=== PATIENT | male | born 1960 ===

== ENCOUNTER 2016-10-30 20:46 | Inpatient (IN) | payer OTHER ==
--- NOTE | 2016-10-30 22:06 | C.PDOC ---
History Of Present Illness <Kaden Giles - Last Filed: 10/31/16 03:04> <Timothy Vazquez - Last Filed: 11/02/16 18:08> 56 year old patient presents to the ED complaining of constant epigastric pain since this morning. Patient states he had the same pain about 5 days ago. Patient was seen by his PMD who instructed him to take Omeprazole. The pain went away, but came back today. Patient denies any history of this, alcohol use , substance use, fever, chills, nausea, vomiting, diarrhea, chest pain, shortness of breath, or back pain. (Timothy Vazquez) <Kaden Giles - Last Filed: 10/31/16 03:04> History Per: Patient History/Exam Limitations: no limitations Onset/Duration Of Symptoms: Hrs (this morning) Current Symptoms Are (Timing): Still Present Context: Other Severity: Mild Pain Scale Rating Of: 3 Location Of Pain/Discomfort: Epigastric Radiation Of Pain To:: None Quality Of Discomfort: "Pain", Other (constant) Exacerbating Factors: None Alleviating Factors: None Last Bowel Movement: Today Recent travel outside of the [place]: No <Timothy Vazquez - Last Filed: 11/02/16 18:08> Time Seen by Provider: 10/30/16 22:05 Chief Complaint (Nursing): Abdominal Pain Past Medical History Reviewed: Historical Data, Nursing Documentation, Vital Signs Family History: States: Unknown Family Hx - Social History Hx Alcohol Use: No Hx Substance Use: No - Immunization History Hx Tetanus Toxoid Vaccination: No Hx Influenza Vaccination: No Hx Pneumococcal Vaccination: No <Timothy Vazquez - Last Filed: 11/02/16 18:08> Vital Signs: Last Vital Signs Temp 98.3 F 11/01/16 15:13 Pulse 65 11/01/16 15:13 Resp 20 11/01/16 15:13 BP 131/81 11/01/16 15:13 Pulse Ox 95 11/01/16 15:13 Review Of Systems Except As Marked, All Systems Reviewed And Found Negative. Constitutional: Negative for: Fever, Chills Cardiovascular: Negative for: Chest Pain Respiratory: Negative for: Shortness of Breath Gastrointestinal: Positive for: Abdominal Pain. Negative for: Nausea, Vomiting , Diarrhea Musculoskeletal: Negative for: Back Pain <Timothy Vazquez P - Last Filed: 11/02/16 18:08> Physical Exam - Physical Exam Appears: Non-toxic, No Acute Distress Skin: Warm, Dry Head: Atraumatic, Normacephalic Eye(s): bilateral: Normal Inspection, PERRL, EOMI Neck: Normal ROM, Supple Chest: Symmetrical Cardiovascular: Rhythm Regular Respiratory: Normal Breath Sounds, No Rales, No Rhonchi, No Wheezing Gastrointestinal/Abdominal: Soft, Tenderness (epigastric), No Guarding, No Rebound Back: Normal Inspection, No CVA Tenderness Extremity: Normal ROM Neurological/Psych: Oriented x3, Normal Speech, Normal Cognition Gait: Steady <Timothy Vazquez P - Last Filed: 11/02/16 18:08> ED Course And Treatment - Laboratory Results Result Diagrams: 10/30/16 22:31 10/30/16 22:31 <Kaden Giles - Last Filed: 10/31/16 03:04> - Laboratory Results Result Diagrams: 11/01/16 06:41 11/01/16 06:41 O2 Sat by Pulse Oximetry: 97 (RA) Pulse Ox Interpretation: Normal <Timothy Vazquez P - Last Filed: 11/02/16 18:08> Medical Decision Making <Kaden Giles - Last Filed: 10/31/16 03:04> <Timothy Vazquez P - Last Filed: 11/02/16 18:08> Medical Decision Making: pt signed out to me pending ct. ct shows early cholecytitis - dr haas accepts requests dr oh consult. instructor adjunct surgical technician giorgi troncoso pageprem, callback pending (Kaden Giles) Plan: -Labs -Lidocaine 2%, Maalox EKG: Sinus Bradycardia 50 bpm incomplete RBBB No STEMI (Timothy Vazquez) Disposition - Disposition Disposition Time: 02:23 <Kaden Giles - Last Filed: 10/31/16 03:04> <Timothy Vazquez P - Last Filed: 11/02/16 18:08> - Disposition Disposition: HOSPITALIZED Condition: STABLE - Clinical Impression Clinical Impression: Cholecystitis <Kaden Giles - Last Filed: 10/31/16 03:04> - Scribe Statement The provider has reviewed the documentation as recorded by the Scribe <Timothy Vazquez - Last Filed: 11/02/16 18:08> - Scribe Statement Gosia Vazquez (Timothy Vazquez) Provider Attestation: All medical record entries made by the Scribe were at my direction and personally dictated by me. I have reviewed the chart and agree that the record accurately reflects my personal performance of the history, physical exam, medical decision making, and the department course for this patient. I have also personally directed, reviewed, and agree with the discharge instructions and disposition. (Timothy Vazquez) Decision To Admit - Pt Status Changed To: Hospital Disposition Of: Inpatient - Admit Certification Admit to Inpatient:: After my assessment, the patient will require hospitalization for at least two midnights. This is because of the severity of symptoms shown, intensity of services needed, and/or the medical risk in this patient being treated as an outpatient. - InPatient: Physician Admission Certification:: pt with cholecytitis - . Bed Request Type: Regular Admitting Physician: Daniel Haas <Kaden Giles - Last Filed: 10/31/16 03:04> <Timothy Vazquez - Last Filed: 11/02/16 18:08> - . Patient Diagnosis: Cholecystitis Physician Patient Turnover Patient Signed Over To: Kaden Giles Handoff Comments: pending ct <Timothy Vazquez - Last Filed: 11/02/16 18:08>
[2016-10-30] MEDS ORDERED: Lidocaine 2% Viscous 100 ml PO STA (22:11)
[2016-10-30] MEDS ORDERED: Aluminum Hydroxide/Magnesium Hydroxide Susp (30 mL) PO STA (22:11)
[2016-10-30] MEDS ORDERED: Aluminum Hydroxide/Magnesium Hydroxide Susp (30 mL) ONE (22:13)
[2016-10-30 22:47] LABS: RBC URINE 2 /hpf (0-3); URINE BILIRUBIN NEGATIVE (NEGATIVE); URINE BLOOD NEGATIVE (NEGATIVE); URINE COLOR Straw (YELLOW); URINE GLUCOSE (UA) NORMAL (Normal); URINE KETONE NEGATIVE (NEGATIVE); URINE LEUKOCYTE ESTERASE NEG Leu/uL (Negative); URINE PROTEIN NEGATIVE (NEGATIVE); URINE UROBILINOGEN NORMAL mg/dL (0.2-1.0); WBC URINE 4 /hpf (0-5)
[2016-10-30 22:50] LABS: CHLORIDE 94 mmol/L (98-107); POTASSIUM 4.1 mmol/L (3.6-5.2); SODIUM 139 mmol/L (132-148)
[2016-10-30 22:52] LABS: AST/SGOT 35 U/L (17-59); BILIRUBIN,TOTAL 0.5 mg/dL (0.2-1.3); CARBON DIOXIDE 28 mmol/L (22-30); GFR AFRICAN-AMERICAN > 60
[2016-10-30 22:53] LABS: ALB/GLOB RATIO 1.3 (1.0-2.1); ALKALINE PHOSPHATASE 113 U/L (38-126); ALT/SGPT 35 U/L (21-72); BLOOD UREA NITROGEN 12 mg/dL (9-20); CALCIUM 9.4 mg/dl (8.6-10.4); GLUCOSE,RANDOM 115 mg/dL (75-110); TOTAL PROTEIN 8.7 g/dL (6.3-8.3)
[2016-10-31] MEDS ORDERED: Morphine 4 MG/ML VIAL ONE (00:05)
[2016-10-31 00:11] LABS: BASO % 0.4 % (0.0-2.0); EOS % 0.2 % (0.0-4.0); HEMATOCRIT 48.5 % (35.0-51.0); LYMPH # 0.9 K/uL (1.0-4.3); MEAN CELL VOLUME 89.2 fL (80.0-94.0); MEAN CORPUSCULAR HEMOGLOBIN 29.1 pg (27.0-31.0); MEAN CORPUSCULAR HGB CONC 32.6 g/dL (33.0-37.0); MEAN PLATELET VOLUME 9.6 fL (7.2-11.7); MONO # 0.3 K/uL (0.0-0.8); MONO % 3.9 % (0.0-10.0); RED CELL DISTRIBUTION WIDTH 13.4 % (11.5-14.5); WHITE BLOOD COUNT 8.6 K/uL (4.8-10.8)
[2016-10-31] MEDS ORDERED: Iohexol 350mg/ml 100 ML ONE (00:16)
[2016-10-31] MEDS ORDERED: Piperacillin/Tazobact 3.375 gm 100 ML IVPB STA (01:42)
--- NOTE | 2016-10-31 05:50 | CP.PCM.CON ---
History of Present Illness - History of Present Illness History of Present Illness: GENERAL SURGERY CONSULT NOTE FOR DR. SUGGS 56yo M with no significant PMHx presents to the ED with epigastric pain. He states the pain began yesterday afternoon after he drank some coke. The pain is sharp, constant, located in the epigastric and RUQ area. He denies nausea, vomiting, diarrhea, CP, SOB, fever, chills. He had similar symptoms 5 days before and was seen by his PMD who told him to take omeprazole. The pain went away but came back yesterday. He has also had similar symptoms previously a few times but the pain this time is more intense which prompted him to come to the hospital. PMHx: none Surgeries: bilateral knee arthroscopies, Right shoulder tendon repair Allergies: none Social history: denies tobacco, etoh, illicit drug use Review of Systems - Review of Systems All systems: reviewed and no additional remarkable complaints except (as per HPI ) Past Patient History - Past Social History Smoking Status: Never Smoked - MUSCULOSKELETAL/RHEUMATOLOGICAL Hx Falls: No - GASTROINTESTINAL Other/Comment: epigastric pain which started yesterday. - PSYCHIATRIC Hx Substance Use: No - SURGICAL HISTORY Hx Surgeries: No Meds Allergies/Adverse Reactions: Allergies Allergy/AdvReac Type Severity Reaction Status Date / Time No Known Allergies Allergy Unverified 10/30/16 21:55 - Medications Medications: Current Medications Piperacillin Sod/Tazobactam (Sod 3.375 gm/ Sodium Chloride) 100 mls @ 200 mls/ hr IVPB Q6H [facility] Sodium Chloride (Sodium Chloride 0.9%) 1,000 mls @ 125 mls/hr IV .Q8H [facility] Morphine Sulfate (Morphine) 2 mg IVP Q4 PRN PRN Reason: Pain, moderate (4-7) Ondansetron HCl (Zofran Inj) 4 mg IVP Q4 PRN PRN Reason: Nausea/Vomiting Physical Exam - Constitutional Appears: Non-toxic, No Acute Distress, Other (uncomfortable) - Head Exam Head Exam: ATRAUMATIC, NORMAL INSPECTION - Eye Exam Eye Exam: EOMI, Normal appearance - Respiratory Exam Respiratory Exam: NORMAL BREATHING PATTERN. absent: Respiratory Distress - Cardiovascular Exam Cardiovascular Exam: +S1, +S2 - GI/Abdominal Exam GI & Abdominal Exam: Soft, Tenderness (tender epigastric and RUQ). absent: Distended, Firm, Guarding, Rebound, Rigid - Neurological Exam Neurological exam: Alert, CN II-XII Intact, Oriented x3 - Psychiatric Exam Psychiatric exam: Normal Affect, Normal Mood - Skin Skin Exam: Dry, Normal Color, Warm Results - Vital Signs Recent Vital Signs: Last Vital Signs Temp 97.7 F 10/31/16 03:11 Pulse 60 10/31/16 03:11 Resp 20 10/31/16 03:11 BP 119/71 10/31/16 03:11 Pulse Ox 98 10/31/16 03:42 - Labs Result Diagrams: 10/30/16 22:31 10/30/16 22:31 Assessment & Plan - Assessment and Plan (Free Text) Assessment: 56yo M with no significant PMHx presents with epigastric pain and is found to have cholelithiasis and possible early cholecystitis - Afebrile, VSS - EKG: sinus earle - CT: couple gallstones, equivocal stranding around GB, possible early cholecystitis, inguinal hernias, diverticulosis, small hiatal hernia - Ordered abdominal US - No leukocytosis, bilirubin, LFTs, Lipase WNL - NPO - IV fluids - Zosyn - Morphine and Zofran PRN - Discussed plan with Dr. Carol Santamaria PGY-2
[2016-10-31] MEDS: Sodium Chloride 0.9% 1,000 ML IV SCH ×3 (06:20→22:02)
--- NOTE | 2016-10-31 10:09 | CT ---
PROCEDURE: CT Abdomen and Pelvis dated 10/31/2016. HISTORY: abdominal pain COMPARISON: None. TECHNIQUE: Contiguous axial images of the abdomen and pelvis pelvis performed in standard fashion following intravenous injection of approximately 100 cc of Omnipaque 350 contrast material. Coronal and Sagittal reformats generated. Radiation dose: Total exam DLP = 631.19 mGy-cm. FINDINGS: LOWER THORAX: Some minimal linear atelectasis and or scarring changes. Lung bases are otherwise clear with no basilar pneumothorax or effusion. Heart is enlarged. No significant pericardial effusion. Small hiatal hernia with slight wall thickening of the distal esophagus that could be due to protrusion of gastric mucosa. Possibility of esophagitis excluded. LIVER: Un the liver exhibits normal size measuring approximately 14.4 cm in CC dimension. Suspect minor fatty hepatic infiltration. There is small approximately 7 mm rounded low-attenuation focus left lobe liver that most likely represents a hepatic cyst. Followup at interval could be performed to assess stability. Portal and splenic veins are opacified. GALLBLADDER AND BILE DUCTS: Intraluminal gallbladder calculi identified. There may also be some layering sludge. PANCREAS: The pancreas is slightly atrophic and fatty replaced. No pancreatic mass collection or calcification. . SPLEEN: Spleen exhibits normal size and attenuation pattern without mass collection or calcification. ADRENALS: There are no adrenal lesions. KIDNEYS AND URETERS: Kidneys exhibit symmetric nephrograms. No evidence of nephrolithiasis or hydronephrosis. BLADDER: Urinary bladder is incompletely distended which presumably in part accounts for thick-walled appearance. Muscular hypertrophy may contribute however the possibility of a cystitis not excluded. REPRODUCTIVE: Prostate gland measures approximately 3.7 cm in transverse dimension. APPENDIX: Normal-appearing appendix. . BOWEL: Evaluation of the bowel is limited due to the lack of oral contrast material. Stomach is incompletely distended which presumably accounts for slight thick-walled appearance. Visualized loops of small bowel exhibit normal contour and caliber. No evidence acute mechanical small bowel obstruction. Moderate amount of stool seen within cecum and ascending colon suggesting mild fecal retention. Few scattered colonic diverticula are present however no radiographic evidence malignancy. PERITONEUM: Unremarkable. No fluid collection. No free air. Small fat containing umbilical hernia. LYMPH NODES: No significant bulky adenopathy. VASCULATURE: Unremarkable. No aortic aneurysm. BONES: Minor multilevel degenerative spondylosis of the lower thoracic and lumbar spine. OTHER FINDINGS: None. IMPRESSION: Cholelithiasis with questionable intraluminal gallbladder sludge. Probable small hepatic cyst. Suspect minimal fatty hepatic infiltration. Thick-walled urinary bladder likely due to underdistention and muscular hypertrophy however the possibility of a cystitis not excluded. Small fat containing umbilical hernia.
--- NOTE | 2016-10-31 10:33 | CP.PCM.HP ---
History of Present Illness - History of Present Illness History of Present Illness: Patient is a 56 year old male who was admitted from the ED due to severe abdominal pain. Patient states that this pain has been progressively worsening for the last 5 days in the epigastric region. pain waxed and waned, and returned 1 day prior to admission after drinking soda. Patient describes the pain as sharp, constant, and in the RUQ of the abdomen. denies fever, chills, nausea, vomiting, diarrhea, SOB, CP PMHx: denies Social Hx: denies alcohol or drug abuse Family Hx: denies Surgical Hx: bilateral knee arthroscopy, right shoulder tendon repair Present on Admission - Present on Admission Any Indicators Present on Admission: No Review of Systems - Constitutional Constitutional: absent: Chills, Fever - EENT Eyes: absent: Change in Vision - Cardiovascular Cardiovascular: As Per HPI. absent: Chest Pain, Chest Pain at Rest, Chest Pain with Activity, Dyspnea, Dyspnea on Exertion, Edema, Irregular Heart Rhythm, Pedal Edema - Respiratory Respiratory: As Per HPI. absent: Cough, Dyspnea, Hemoptysis, Dyspnea on Exertion, Wheezing, Chest Congestion, Excessive Mucous Production - Gastrointestinal Gastrointestinal: Abdominal Pain (Epigastric Pain in RUQ). absent: Diarrhea, Nausea, Vomiting - Musculoskeletal Musculoskeletal: absent: Back Pain, Joint Swelling - Neurological Neurological: absent: Abnormal Speech, Behavioral Changes Past Patient History - Past Social History Smoking Status: Never Smoked - MUSCULOSKELETAL/RHEUMATOLOGICAL Hx Falls: No - GASTROINTESTINAL Other/Comment: epigastric pain which started yesterday. - PSYCHIATRIC Hx Substance Use: No - SURGICAL HISTORY Hx Surgeries: No Meds Allergies/Adverse Reactions: Allergies Allergy/AdvReac Type Severity Reaction Status Date / Time No Known Allergies Allergy Unverified 10/30/16 21:55 Physical Exam - Constitutional Appears: Non-toxic, No Acute Distress, Other Additional comments: Appears in pain and discomfort, but is able to sit and converse - Head Exam Head Exam: NORMAL INSPECTION - Eye Exam Eye Exam: Normal appearance - ENT Exam ENT Exam: Mucous Membranes Moist - Neck Exam Neck exam: Positive for: Normal Inspection - Respiratory Exam Respiratory Exam: Clear to Auscultation Bilateral, NORMAL BREATHING PATTERN - Cardiovascular Exam Cardiovascular Exam: REGULAR RHYTHM, +S1, +S2 - GI/Abdominal Exam GI & Abdominal Exam: Soft, Tenderness (... in the epigastric RUQ abdominal region). absent: Distended, Firm, Guarding, Rebound, Rigid - Extremities Exam Extremities exam: Positive for: normal inspection - Neurological Exam Neurological exam: Alert, Altered, CN II-XII Intact, Oriented x3 - Psychiatric Exam Psychiatric exam: Normal Affect, Normal Mood - Skin Skin Exam: Dry, Intact, Normal Color, Warm Results - Vital Signs Recent Vital Signs: Last Vital Signs Temp 98.6 F 10/31/16 07:00 Pulse 58 L 10/31/16 07:00 Resp 18 10/31/16 07:00 BP 129/70 10/31/16 07:00 Pulse Ox 96 10/31/16 07:00 - Labs Result Diagrams: 10/30/16 22:31 10/30/16 22:31 Assessment & Plan (1) Cholecystitis Assessment and Plan: CT done on 10/30 showed cholelithiasis with questionable intraluminal gallbladder sludge. See report for full details EKG 10/30 showed incomplete RBBB. Continue to monitor Pain control with morphine infection prophylaxis with Zosyn Dietary consult surgical consults/cholecystectomy Status: Acute
[2016-10-31] MEDS: Piperacillin/Tazobact 3.375 GM in Sodium Chloride 100 ML IVPB SCH ×3 (10:45→19:51)
--- NOTE | 2016-10-31 12:08 | US ---
Abdominal ultrasound dated 10/31/2016. History: Questionable cholecystitis. Sonographic evaluation of abdomen performed and compared with prior study 09/20/2016. Correlation made with CT scan of the abdomen and pelvis obtained earlier same day. . Findings: The liver exhibits normal size measuring 13.3 cm CC dimension. Liver demonstrates smooth contour increased echotexture consistent with fatty infiltration however other infiltrative hepatocellular disease process not excluded. . No obvious hepatic mass or collection. No evidence of abdominal ascites. . Gallbladder is physiologically distended. Intraluminal gallbladder calculi present. Mild wall edema measuring 6.1 mm. No sonographic Richards sign. Early acute cholecystitis not excluded. . Evaluation of pancreas is somewhat limited. Pancreatic mid body and tail appear poorly visualized on this exam. . . Spleen is unremarkable. . Kidneys exhibit symmetric size. No evidence of nephrolithiasis or hydronephrosis. . Impression: Cholelithiasis. Mild wall thickening ; rule out mild early cholecystitis. Fatty hepatic infiltration. Evaluation of the pancreas limited.
[2016-10-31] MEDS ORDERED: Lactated Ringer's 1,000 ML IV ONE (14:15)
[2016-10-31] MEDS ORDERED: Propofol 10 mg/ml Inj (20 ML) ONE (14:22)
[2016-10-31] MEDS ORDERED: Midazolam 2 MG/2 ML VIAL ONE (14:22)
[2016-10-31] MEDS ORDERED: Iohexol 240 (50 ml) ONE (14:33)
[2016-10-31] MEDS ORDERED: Neostigmine Methylsulfate 3mg/3ml Syringe IV ONE (15:20)
--- NOTE | 2016-10-31 15:45 | PCM.SURG1 ---
Surgeon's Initial Post Op Note - Surgeon's Notes Surgeon: Dr. Medina Digital Service Engineer: Dr. Moyer Type of Anesthesia: General Endo Pre-Operative Diagnosis: acute cholecystitis Operative Findings: inflammed gallbladder Post-Operative Diagnosis: same Operation Performed: laparoscopic cholecystectomy w/ IOC and primary repair of incarcerated umbilical hernia Specimen/Specimens Removed: gallbladder, bile fluid c&s Estimated Blood Loss: EBL {In ML}: 20 Blood Products Given: N/A Drains Used: No Drains Post-Op Condition: Good Date of Surgery/Procedure: 10/31/16 Time of Surgery/Procedure: 15:45
[2016-10-31] MEDS ORDERED: Oxycodone/Acetaminophen 5/325 mg Tab PO PRN ×2 (15:46)
[2016-10-31] MEDS: HYDROmorphone 0.5 mg/0.5 ml ISec IVP PRN ×2 (16:18→16:36)
[2016-10-31] MEDS ORDERED: Sodium Chloride 0.9% 1,000 ML IV ONE (17:00)
--- NOTE | 2016-10-31 18:51 | OP ---
PROCEDURE DATE: 10/31/2016 PREOPERATIVE DIAGNOSIS: Acute cholecystitis. POSTOPERATIVE DIAGNOSIS: Acute cholecystitis. PROCEDURE CARRIED OUT: Laparoscopic cholecystectomy with C-arm cholangiogram. SURGEON: Jeferson Medina Jr., MD PMO PROJECT MANAGER: Dr. Moyer. ANESTHESIOLOGIST: ANESTHESIA: General anesthesia. INDICATIONS: A 56-year-old man, previously healthy, admitted with severe abdominal pain, found to urena ve an inflamed gallbladder. Liver function tests were basically normal. OPERATIVE FINDINGS: 1. A cholangiogram carried out through the cystic duct showed free flow into the duodenum and visual ization of hepatic radicles. 2. A view of safety was obtained. 3. The cystic duct and cystic artery were clipped. 4. The gallbladder was acutely inflamed and edematous. DESCRIPTION OF PROCEDURE: The patient was given general anesthesia, intravenous antibiotics, Venodyn e boots were applied. A Guilherme trocar was inserted by cutdown technique. There was a chronically in carcerated infraumbilical hernia which had to be reduced. This was then closed separately at the end of the procedure. We then decompressed the gallbladder and there was sima pus in the gallbladder. This was cultured. The cystic duct and cystic artery, as I mentioned, in the view of safety was the n obtained. The gallbladder then removed after clipping this, obtaining hemostasis in the liver bed, removing the gallbladder in the bag. Thorough search was made for hemostasis, injuries to the liver , injury to the bowel, none were visible. We then irrigated out again and closed the abdomen with ru nning sutures of Novafil and PDS. Subcuticular closure on the skin. The umbilical port was closed. Special closure had to be carried out because of the chronically incarcerated hernia which was reduc ed and then repaired at the end of the procedure. Blood loss of the procedure was less than 25 mL. OPERATION CARRIED OUT: Laparoscopic cholecystectomy with cholangiogram and repair of chronically inc arcerated umbilical hernia, no mesh. Jeferson Medina Jr., MD cc:Daniel Mendoza MD 55 TT: 10/31/2016 18:49:53 jero
--- NOTE | 2016-10-31 20:21 | CARD ---
APPROVED REPORT EKG Measurement Heart [id number] <Conclusion> Sinus bradycardia with occasional premature ventricular complexes Incomplete right bundle branch block Borderline ECG
[2016-11-01] MEDS: Piperacillin/Tazobact 3.375 GM in Sodium Chloride 100 ML IVPB SCH ×3 (01:55→13:45)
[2016-11-01] MEDS: Sodium Chloride 0.9% 1,000 ML IV SCH (06:05)
[2016-11-01 07:03] LABS: BASO % 0.2 % (0.0-2.0); EOS # 0.1 K/uL (0.0-0.7); EOS % 1.1 % (0.0-4.0); HEMATOCRIT 40.7 % (35.0-51.0); LYMPH # 1.9 K/uL (1.0-4.3); LYMPH % 26.2 % (20.0-40.0); MEAN CELL VOLUME 88.6 fL (80.0-94.0); MEAN CORPUSCULAR HEMOGLOBIN 29.3 pg (27.0-31.0); MEAN CORPUSCULAR HGB CONC 33.1 g/dL (33.0-37.0); MEAN PLATELET VOLUME 9.5 fL (7.2-11.7); MONO # 0.8 K/uL (0.0-0.8); MONO % 10.5 % (0.0-10.0); NRBC % 0.1 % (0.0-2.0); RED CELL DISTRIBUTION WIDTH 13.5 % (11.5-14.5); WHITE BLOOD COUNT 7.4 K/uL (4.8-10.8)
[2016-11-01 07:06] LABS: CHLORIDE 100 mmol/L (98-107); SODIUM 137 mmol/L (132-148)
[2016-11-01 07:07] LABS: POTASSIUM 3.8 mmol/L (3.6-5.2)
[2016-11-01 07:08] LABS: GFR AFRICAN-AMERICAN > 60
[2016-11-01 07:09] LABS: ALB/GLOB RATIO 1.3 (1.0-2.1); ALKALINE PHOSPHATASE 77 U/L (38-126); ALT/SGPT 58 U/L (21-72); AST/SGOT 54 U/L (17-59); BLOOD UREA NITROGEN 20 mg/dL (9-20); CARBON DIOXIDE 27 mmol/L (22-30); GLUCOSE,RANDOM 89 mg/dL (75-110)
[2016-11-01 07:10] LABS: CALCIUM 7.6 mg/dl (8.6-10.4)
[2016-11-01] MEDS ORDERED: Enoxaparin 40 mg Syringe SC SCH (10:00)
--- NOTE | 2016-11-01 10:27 | CP.PCM.PN ---
Subjective - Date & Time of Evaluation Date of Evaluation: 11/01/16 Time of Evaluation: 11:39 - Subjective Subjective: Surgery: Dr. Medina Patient reports minimal pain at surgical site. He is tolerating diet. He denies f/c/n/v. Objective - Vital Signs/Intake and Output Vital Signs (last 24 hours): Temp Pulse Resp BP Pulse Ox 99.2 F 72 18 123/66 91 L 11/01/16 08:24 11/01/16 08:24 11/01/16 08:24 11/01/16 08:24 11/01/16 08:24 Intake and Output: 11/01/16 11/01/16 06:59 18:59 Intake Total 940 Balance 940 - Medications Medications: Current Medications Enoxaparin Sodium (Lovenox) 40 mg SC DAILY [facility] Last Admin: 11/01/16 09:38 Dose: 40 mg Piperacillin Sod/Tazobactam (Sod 3.375 gm/ Sodium Chloride) 100 mls @ 200 mls/ hr IVPB Q6H [facility] Last Admin: 11/01/16 09:37 Dose: 200 mls/hr Sodium Chloride (Sodium Chloride 0.9%) 1,000 mls @ 125 mls/hr IV .Q8H [facility] Last Admin: 11/01/16 06:05 Dose: Not Given Morphine Sulfate (Morphine) 2 mg IVP Q4 PRN PRN Reason: Pain, severe (8-10) Ondansetron HCl (Zofran Inj) 4 mg IVP Q4 PRN PRN Reason: Nausea/Vomiting Oxycodone/Acetaminophen (Percocet 5/325 Mg Tab) 1 tab PO Q4H PRN PRN Reason: Pain, moderate (4-7) Stop: 11/03/16 15:47 Oxycodone/Acetaminophen (Percocet 5/325 Mg Tab) 2 tab PO Q4H PRN PRN Reason: Pain, severe (8-10) Stop: 11/03/16 15:47 - Labs Labs: 11/01/16 06:41 11/01/16 06:41 - Constitutional Appears: Non-toxic, No Acute Distress - Head Exam Head Exam: ATRAUMATIC, NORMOCEPHALIC - Eye Exam Eye Exam: EOMI, Normal appearance - ENT Exam ENT Exam: Mucous Membranes Moist - Respiratory Exam Respiratory Exam: NORMAL BREATHING PATTERN. absent: Respiratory Distress - Cardiovascular Exam Cardiovascular Exam: REGULAR RHYTHM. absent: Tachycardia - GI/Abdominal Exam GI & Abdominal Exam: Soft. absent: Distended, Tenderness Additional comments: dressing CDI - Extremities Exam Extremities Exam: Normal Inspection. absent: Calf Tenderness - Neurological Exam Neurological Exam: Alert, Awake, Oriented x3 Assessment and Plan - Assessment and Plan (Free Text) Assessment: 56 y/o male s/p lap harris POD1 Plan: -cleared from surgical standpoint -f/u w/ Dr. Medina in office in 2 weeks -cont low fat diet -can removed dressing tomorrow -can shower, do not bathe or soak incisions -patient concerned about work leave and disability, will defer to primary. -d/w [facility]. Medina [facility] PGY1
--- NOTE | 2016-11-01 11:28 | CP.PCM.PN ---
Subjective - Date & Time of Evaluation Date of Evaluation: 11/01/16 Time of Evaluation: 09:00 - Subjective Subjective: Patient was seen and examined at bedside, s/p cholecystectomy and umbilical hernia repair 10/31/2016. Patient appeared to be in no acute distress. Patient was resting and breathing comfortably in bed. Patient states that he is doing well. Denies complaints of SOB, Cough, congestion, fever, CP. Patient does complain of mild superficial discomfort around wounds, but denies any deep abdominal pain. Objective - Vital Signs/Intake and Output Vital Signs (last 24 hours): Temp Pulse Resp BP Pulse Ox 99.2 F 72 18 123/66 91 L 11/01/16 08:24 11/01/16 08:24 11/01/16 08:24 11/01/16 08:24 11/01/16 08:24 Intake and Output: 11/01/16 11/01/16 06:59 18:59 Intake Total 940 Balance 940 - Medications Medications: Current Medications Enoxaparin Sodium (Lovenox) 40 mg SC DAILY [facility] Last Admin: 11/01/16 09:38 Dose: 40 mg Piperacillin Sod/Tazobactam (Sod 3.375 gm/ Sodium Chloride) 100 mls @ 200 mls/ hr IVPB Q6H [facility] Last Admin: 11/01/16 09:37 Dose: 200 mls/hr Sodium Chloride (Sodium Chloride 0.9%) 1,000 mls @ 125 mls/hr IV .Q8H [facility] Last Admin: 11/01/16 06:05 Dose: Not Given Morphine Sulfate (Morphine) 2 mg IVP Q4 PRN PRN Reason: Pain, severe (8-10) Ondansetron HCl (Zofran Inj) 4 mg IVP Q4 PRN PRN Reason: Nausea/Vomiting Oxycodone/Acetaminophen (Percocet 5/325 Mg Tab) 1 tab PO Q4H PRN PRN Reason: Pain, moderate (4-7) Stop: 11/03/16 15:47 Oxycodone/Acetaminophen (Percocet 5/325 Mg Tab) 2 tab PO Q4H PRN PRN Reason: Pain, severe (8-10) Stop: 11/03/16 15:47 - Labs Labs: 11/01/16 06:41 11/01/16 06:41 - Constitutional Appears: Well, Non-toxic, No Acute Distress - Head Exam Head Exam: NORMAL INSPECTION - Eye Exam Eye Exam: Normal appearance - ENT Exam ENT Exam: Mucous Membranes Moist - Neck Exam Neck Exam: Normal Inspection - Respiratory Exam Respiratory Exam: Clear to Ausculation Bilateral, NORMAL BREATHING PATTERN - Cardiovascular Exam Cardiovascular Exam: REGULAR RHYTHM, RRR, +S1, +S2 - GI/Abdominal Exam Additional comments: laprosopic incision sights are well dressed, dry, and clean. - Extremities Exam Extremities Exam: absent: Joint Swelling, Pedal Edema - Neurological Exam Neurological Exam: Alert, Awake, Oriented x3 - Psychiatric Exam Psychiatric exam: Normal Affect, Normal Mood - Skin Skin Exam: Dry, Intact, Normal Color, Warm Assessment and Plan (1) Cholecystitis Assessment & Plan: Patient s/p cholecystecomy and umbilical hernia repair undertaken 10/31 continue to monitor for fever, pain, CP, SOB, and changes in bowel habits. Continue to manage pain Status: Acute
[2016-11-01 15:16] VITALS: BP 131/81; PULSE 65; RESP 20; TEMP 98.3
[2016-11-02 18:08] VITALS: O2SAT 97
== END 2016-11-01 18:45 | disposition home or self-care (01) | DRG 418 ==
LOC: C.ER 20:46 → C.5T 10-31 02:24
PROVIDERS: ADMIT Internal Medicine Critical Care Medicine; ATTEND Internal Medicine Critical Care Medicine
PROC: 0WQF4ZZ Repair Abdominal Wall, Percutaneous Endoscopic Approach (ICD-10-PCS; 2016-10-31)
PROC: BF121ZZ Fluoroscopy of Gallbladder using Low Osmolar Contrast (ICD-10-PCS; 2016-10-31)
PROC: 0FT44ZZ Resection of Gallbladder, Percutaneous Endoscopic Approach (ICD-10-PCS; principal; 2016-10-31 16:00)
DX: K80.12 Calculus of gallbladder with acute and chronic cholecystitis without obstruction (principal); K42.0 Umbilical hernia with obstruction, without gangrene; R00.1 Bradycardia, unspecified; I45.10 Unspecified right bundle-branch block